=== PATIENT | female | born 1995 | race Caucasian/White ===

== ENCOUNTER 2018-02-15 11:40 | Emergency (ER) | payer BC, SELFPAY ==
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
== END 2018-02-15 13:30 | disposition home or self-care (01) ==
LOC: SCSER 11:40
DX: S16.1XXA Strain of muscle, fascia and tendon at neck level, initial encounter (principal); R51 Headache; E07.9 Disorder of thyroid, unspecified; V43.62XA Car passenger injured in collision with other type car in traffic accident, initial encounter
CPT/HCPCS: 70450; 72125